=== PATIENT | female | born 1950 | race Caucasian/White ===

== ENCOUNTER 2017-04-27 07:29 | Emergency (ER) | payer MEDICARE, OTHER ==
[2017-04-27 07:41] VITALS: BP 171/80
--- NOTE | 2017-04-27 07:59 | EDM.PDOC ---
ED HPI GENERAL MEDICAL PROBLEM - General Chief Complaint: Lower Extremity Injury/Pain Stated Complaint: RIGHT FOOT INJURY Time Seen by Provider: 04/27/17 07:50 Source of Information: Reports: Patient, Family History Limitations: Reports: No Limitations - History of Present Illness INITIAL COMMENTS - FREE TEXT/NARRATIVE: The patient twisted her ankle in the bathroom a few days ago. She did not injure anything else such as her head or neck. She has edema and ecchymosis to her right foot and ankle. Onset: Sudden Duration: Day(s): Location: Reports: Lower Extremity, Right (ankle and foot) Quality: Reports: Sharp Severity: Moderate Improves with: Reports: Immobilization Worsens with: Reports: Movement Context: Reports: Activity (After getting off of the toilet) Associated Symptoms: Reports: No Other Symptoms Right Ankle Pain Score (Numeric/FACES): 5 - Related Data Allergies Allergy/AdvReac Type Severity Reaction Status Date / Time amitriptyline Allergy Cannot Verified 03/31/14 09:22 Remember azithromycin Allergy Rash Verified 03/31/14 09:22 cefixime [From Suprax] Allergy Cannot Verified 03/31/14 09:22 Remember clindamycin Allergy Cannot Verified 03/31/14 09:22 Remember codeine Allergy Cannot Verified 04/27/17 07:41 Remember diphenhydramine HCl Allergy Cannot Verified 04/27/17 07:41 [From Benadryl] Remember doxycycline Allergy Cannot Verified 04/27/17 07:41 Remember erythromycin base Allergy Cannot Verified 04/27/17 07:41 [Erythromycin Base] Remember gatifloxacin [From Tequin] Allergy Cannot Verified 04/27/17 07:41 Remember levofloxacin Allergy Hives Verified 04/27/17 07:41 lisinopril Allergy Hives Verified 04/27/17 07:41 lithium [[place]] Allergy Cannot Verified 04/27/17 07:41 Remember minocycline [Minocycline] Allergy Cannot Verified 04/27/17 07:41 Remember minocycline HCl Allergy Cannot Verified 04/27/17 07:41 [From Minocin] Remember Penicillins Allergy Cannot Verified 03/31/14 09:22 Remember ranitidine HCl [From Zantac] Allergy Cannot Verified 03/31/14 09:22 Remember Home Meds: Home Meds Albuterol/Ipratropium [DuoNeb 3.0-0.5 MG/3 ML] 3 ml NEB Q6HRRT #50 neb 07/01/16 [Rx] Hydrocodone/Chlorphen P-Stirex [Tussionex Pennkinetic Susp] 5 ml PO Q12H PRN # 60 ml 07/01/16 [Rx] predniSONE [Deltasone] 20 mg PO ASDIRECTED #18 tablet 07/01/16 [Rx] Past Medical History Cardiovascular History: Reports: Hypertension, SOB on Exertion Respiratory History: Reports: Bronchitis, Recurrent, COPD, Other (See Below) Gastrointestinal History: Reports: Chronic Constipation, GERD, Hemorrhoids, Hiatal Hernia, Irritable Bowel Syndrome Genitourinary History: Reports: Renal Calculus, Other (See Below) 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 Musculoskeletal History: Reports: Back Pain, Chronic, Osteoarthritis, Osteoporosis - Past Surgical History HEENT Surgical History: Reports: Cataract Surgery, Oral Surgery, Tonsillectomy GI Surgical History: Reports: Cholecystectomy, Colonoscopy, Hernia, Abdominal Musculoskeletal Surgical History: Reports: Other (See Below) Social & Family History - Family History Cardiac: Reports: CAD, Hypertension - Tobacco Use Smoking Status *Q: Former Smoker Years of Tobacco use: 40 Packs/Tins Daily: 1 Used Tobacco, but Quit: Yes Month Tobacco Last Used: unk - Caffeine Use Caffeine Use: Reports: Soda - Recreational Drug Use Recreational Drug Use: No - Living Situation & Occupation Living situation: Reports: Single Occupation: Retired Review of Systems - Review of Systems Review Of Systems: See Below Constitutional: Reports: No Symptoms Eyes: Reports: No Symptoms Ears: Reports: No Symptoms Nose: Reports: No Symptoms Mouth/Throat: Reports: No Symptoms Respiratory: Reports: No Symptoms Cardiovascular: Reports: No Symptoms GI/Abdominal: Reports: No Symptoms Genitourinary: Reports: No Symptoms Musculoskeletal: Reports: Other (Right ankle and foot pain) ED EXAM, GENERAL - Physical Exam Exam: See Below Exam Limited By: No Limitations General Appearance: Alert, No Apparent Distress Ears: Normal External Exam Nose: Normal Inspection Head: Atraumatic, Normocephalic Neck: Normal Inspection Respiratory/Chest: No Respiratory Distress, Lungs Clear, Normal Breath Sounds Cardiovascular: Regular Rate, Rhythm, No Edema, No Murmur GI/Abdominal: Soft, Non-Tender, No Organomegaly, No Mass Extremities: Other (Ecchymosis to the front of the foot. Edema to the ankle and foot with pain upon palpation. Good sensation and pulses distally.) Course - Vital Signs Last Recorded V/S: Last Vital Signs Temp 97.5 F 04/27/17 07:36 Pulse 90 04/27/17 07:36 Resp 16 04/27/17 07:36 BP 171/80 H 04/27/17 07:36 Pulse Ox 92 L 04/27/17 07:36 - Orders/Labs/Meds Orders: Active Orders 24 hr Category Date Time Status Ankle Min 3V Rt [CR] Stat Exams 04/27/17 07:54 Taken Foot Comp Min 3V Rt [CR] Stat Exams 04/27/17 07:54 Taken - Re-Assessments/Exams Free Text/Narrative Re-Assessment/Exam: 04/27/17 07:58 I ordered an x-ray of her foot and ankle. 04/27/17 08:49 She has a fracture of the proximal 5th metatarsal and a distal fibular fracture. She has a walking boot at home and I will have her follow up with Dr Pozo. Departure - Departure Time of Disposition: 08:50 Disposition: Home, Self-Care 01 Condition: Good Clinical Impression: Fibula fracture Qualifiers: Encounter type: initial encounter Fibula location: distal Fracture type: closed Fracture morphology: other fracture Laterality: right Qualified Code(s): S82.831A - Other fracture of upper and lower end of right fibula, initial encounter for closed fracture Metatarsal fracture Qualifiers: Encounter type: initial encounter Metatarsal bone: fifth Fracture type: closed Fracture alignment: nondisplaced Laterality: right Qualified Code(s): S92.354A - Nondisplaced fracture of fifth metatarsal bone, right foot, initial encounter for closed fracture - Discharge Information Referrals: Margoth Sykes NP [Primary Care Provider] - Figueroa Pozo MD [Physician] - 1 Week Forms: ED Department Discharge Additional Instructions: Wear the walking boot. Try to stay off your foot as much as you can for a couple of days. Ice your ankle and foot for 15 minutes every other hour while awake for 2 days. Take tylenol or motrin for pain. Follow up with Dr Pozo in 1 week. Please return if you are worse. - My Orders Last 24 Hours: My Active Orders 04/27/17 07:54 Ankle Min 3V Rt [CR] Stat Foot Comp Min 3V Rt [CR] Stat - Assessment/Plan Last 24 Hours: My Active Orders 04/27/17 07:54 Ankle Min 3V Rt [CR] Stat Foot Comp Min 3V Rt [CR] Stat
--- NOTE | 2017-04-27 09:12 | CR ---
Right foot: Five radiographs of the right foot were obtained. Comparison: No previous foot exam, recent ankle exam is available. Slightly displaced fracture is again noted within the base of the fifth metatarsal. Fracture involving the tip of the distal fibula is again noted. Small plantar spur is seen. No additional bony abnormality is seen. Soft tissue swelling is noted. Impression: 1. Slightly displaced fractures involving the base of the right fifth metatarsal as well as involving the tip of the fibula. 2. Soft tissue swelling. Diagnostic code #3
--- NOTE | 2017-04-27 09:12 | CR ---
Right ankle: Four views of the right ankle were obtained. Comparison: No previous right ankle exam. Fracture felt to be present within the distal tip of the fibula. Slight displacement is seen. Soft tissue swelling is identified. Ankle mortise is symmetric. Additional fracture is seen within the base of the fifth metatarsal which is slightly displaced. Small plantar spur is seen. Impression: 1. Fracture within the tip of the distal fibula with mild displacement. 2. Slightly displaced fracture within the base of the fifth metatarsal. 3. Soft tissue swelling. Diagnostic code #3
== END 2017-04-27 08:55 | disposition home or self-care (01) ==
LOC: JD.ED 07:29
DX: S92.354A Nondisplaced fracture of fifth metatarsal bone, right foot, initial encounter for closed fracture (principal); S82.831A Other fracture of upper and lower end of right fibula, initial encounter for closed fracture; S90.31XA Contusion of right foot, initial encounter; Z87.891 Personal history of nicotine dependence; I10 Essential (primary) hypertension; J44.9 Chronic obstructive pulmonary disease, unspecified; Z88.0 Allergy status to penicillin; Z88.1 Allergy status to other antibiotic agents; Z88.8 Allergy status to other drugs, medicaments and biological substances; Z88.5 Allergy status to narcotic agent; X50.1XXA Overexertion from prolonged static or awkward postures, initial encounter
CPT/HCPCS: 73610-26-RT; 73610-RT; 73630-26-RT; 73630-RT; 99283

== ENCOUNTER 2019-06-01 21:05 | Emergency (ER) | payer MEDICARE, OTHER ==
[2019-06-01 21:15] VITALS: BP 193/100; PULSE 65
[2019-06-01] MEDS ORDERED: Sodium Chloride 0.9% 10 ML Syringe FLUSH PRN (21:28)
[2019-06-01] MEDS ORDERED: Sodium Chloride 0.9% 1,000 ML IV ONE (21:28)
[2019-06-01] MEDS ORDERED: methylPREDNISolone Sodium Succinate 125 MG/2 ML SDV IVPUSH ONE (21:28)
[2019-06-01] MEDS ORDERED: predniSONE 20 MG Tab PO ONE ×2 (21:31→21:53)
--- NOTE | 2019-06-01 21:38 | EDM.PDOC ---
ED HPI GENERAL MEDICAL PROBLEM - General Chief Complaint: Allergic Reaction Stated Complaint: ALLERGIG REACTION Time Seen by Provider: 06/01/19 21:13 Source of Information: Reports: Patient, RN Notes Reviewed History Limitations: Reports: No Limitations - History of Present Illness INITIAL COMMENTS - FREE TEXT/NARRATIVE: Patient is a 68-year-old female who presents to the ED for the evaluation of a possible allergic reaction. Patient states that she got some new make-up on , and used 4 of the 8 products she obtained. She did notice a rash on her forehead, and around her cheeks, and states now that today she feels of her tongue is swollen. She denies any shortness of breath, but states that her chest feels tight. She denies any wheezing, or previous respiratory history. States she did not use a make-up yesterday as she noticed the rash. Patient states she has an allergy to Benadryl, but she cannot remember what exactly happened when she took Benadryl. She notes that the rash is not itchy. She did bring in the make-up products for evaluation, one appears to be in exfoliated, with alphahydroxy acid. Patient notes that she takes Claritin and Pepcid on a regular basis, she did take these today. - Related Data Allergies Allergy/AdvReac Type Severity Reaction Status Date / Time amitriptyline Allergy Cannot Verified 06/01/19 21:15 Remember azithromycin Allergy Rash Verified 06/01/19 21:15 cefixime [From Suprax] Allergy Cannot Verified 06/01/19 21:15 Remember clindamycin Allergy Cannot Verified 06/01/19 21:15 Remember codeine Allergy Cannot Verified 06/01/19 21:15 Remember diphenhydramine HCl Allergy Cannot Verified 06/01/19 21:15 [From Benadryl] Remember doxycycline Allergy Cannot Verified 06/01/19 21:15 Remember erythromycin base Allergy Cannot Verified 06/01/19 21:15 [Erythromycin Base] Remember gatifloxacin [From Tequin] Allergy Cannot Verified 06/01/19 21:15 Remember levofloxacin Allergy Hives Verified 06/01/19 21:15 lisinopril Allergy Hives Verified 06/01/19 21:15 lithium [[place]] Allergy Cannot Verified 06/01/19 21:15 Remember minocycline [Minocycline] Allergy Cannot Verified 06/01/19 21:15 Remember minocycline HCl Allergy Cannot Verified 12/14/19 21:15 [From Minocin] Remember Penicillins Allergy Cannot Verified 06/01/19 21:15 Remember ranitidine HCl [From Zantac] Allergy Cannot Verified 06/01/19 21:15 Remember Home Meds: Home Meds Albuterol [Ventolin HFA] 4 puff INH QID PRN 04/27/17 [History] Albuterol/Ipratropium [DuoNeb 3.0-0.5 MG/3 ML] 1 dose INH QID 04/27/17 [History] Amitriptyline [Elavil] 25 mg PO DAILY 04/27/17 [History] Aspirin 81 mg PO DAILY 04/27/17 [History] Calcium Carbonate [Calcium] 600 mg PO DAILY 04/27/17 [History] Cholecalciferol (Vitamin D3) [Cholecalciferol] 8 g PO DAILY 04/27/17 [History] Cyanocobalamin (Vitamin B-12) [Vitamin B-12] 500 mcg PO DAILY 04/27/17 [History] Dexlansoprazole [Dexilant] 60 mg PO BID 04/27/17 [History] Diclofen Sod/Kinesiology Tape [Diclo Gel 1%-Xrylix Sheet Kit] 1 dose TOP DAILY PRN 04/27/17 [History] Famotidine [Pepcid] 20 mg PO BID 04/27/17 [History] Fluticasone Propionate [Flonase] 2 spr KENNETH DAILY 04/27/17 [History] Gabapentin [Neurontin] 300 mg PO BID 04/27/17 [History] Ginko Biloba Extract 240 mg PO DAILY 04/27/17 [History] Loratadine [Claritin] 10 mg PO DAILY PRN 04/27/17 [History] Losartan [Cozaar] 50 mg PO DAILY 04/27/17 [History] Meloxicam 7.5 mg PO DAILY 04/27/17 [History] Metoprolol Tartrate [Lopressor] 100 mg PO BID 04/27/17 [History] Polyethylene Glycol 3350 [MiraLAX] 1 pack PO DAILY 04/27/17 [History] Sennosides [Senna] 8.6 mg PO DAILY 04/27/17 [History] Spironolactone [Aldactone] 6.25 mg PO BID 04/27/17 [History] Tapentadol HCl [Nucynta ER] 50 mg PO BID 04/27/17 [History] predniSONE 20 mg PO ASDIRECTED #13 tab 06/01/19 [Rx] Past Medical History Cardiovascular History: Reports: Hypertension, SOB on Exertion Respiratory History: Reports: Bronchitis, Recurrent, COPD, Other (See Below) Gastrointestinal History: Reports: Chronic Constipation, GERD, Hemorrhoids, Hiatal Hernia, Irritable Bowel Syndrome Genitourinary History: Reports: Renal Calculus, Other (See Below) 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 Musculoskeletal History: Reports: Back Pain, Chronic, Osteoarthritis, Osteoporosis - Past Surgical History HEENT Surgical History: Reports: Cataract Surgery, Oral Surgery, Tonsillectomy GI Surgical History: Reports: Cholecystectomy, Colonoscopy, Hernia, Abdominal Musculoskeletal Surgical History: Reports: Other (See Below) Social & Family History - Family History Cardiac: Reports: CAD, Hypertension - Tobacco Use Smoking Status *Q: Never Smoker Second Hand Smoke Exposure: No - Caffeine Use Caffeine Use: Reports: None - Recreational Drug Use Recreational Drug Use: No - Living Situation & Occupation Living situation: Reports: Single Occupation: Retired ED ROS ALLERGIC REACTION - Review of Systems Review Of Systems: See Below Constitutional: Denies: Fever, Chills HEENT: Reports: Other (feels her tongue is swollen) Respiratory: Reports: Shortness of Breath (sensation of not catching a deep breath). Denies: Wheezing GI/Abdominal: Denies: Abdominal Pain, Nausea, Vomiting Skin: Reports: Rash (light red rash to cheeks and forehead) ED EXAM GENERAL NO PERIP PULSE - Physical Exam Exam: See Below Exam Limited By: No Limitations General Appearance: Alert, WD/WN, No Apparent Distress Throat/Mouth: Normal Inspection, Normal Lips, Normal Teeth, Normal Gums, Normal Voice, No Airway Compromise, Other (Pt oral mucosa is dry) Head: Atraumatic, Normocephalic Neck: Normal Inspection Respiratory/Chest: No Respiratory Distress, Lungs Clear, Normal Breath Sounds, No Accessory Muscle Use, Chest Non-Tender Cardiovascular: Normal Peripheral Pulses, Regular Rate, Rhythm, No Murmur GI/Abdominal: Normal Bowel Sounds, Soft, Non-Tender, No Distention, No Mass Extremities: Normal Inspection, Normal Capillary Refill Neurological: Alert, Oriented, Normal Cognition, No Motor/Sensory Deficits Psychiatric: Normal Affect, Normal Mood Skin Exam: Warm, Dry, Intact, Normal Color, Erythema (to cheeks and forehead), Rash (light red rash that is slightly rough to touch, not tender or itchy.) Course - Vital Signs Last Recorded V/S: Last Vital Signs Temp 96.5 F 06/01/19 21:15 Pulse 65 06/01/19 21:15 Resp 20 06/01/19 21:15 BP 193/100 H 06/01/19 21:15 Pulse Ox 96 06/01/19 21:15 - Orders/Labs/Meds Orders: Active Orders 24 hr Category Date Time Status Peripheral IV Care [RC] . DIRECTED Care 06/01/19 21:28 Ordered Sodium Chloride 0.9% [Normal Saline] 1,000 ml Med 06/01/19 21:28 Ordered IV ONETIME Sodium Chloride 0.9% [Saline Flush] Med 06/01/19 21:28 Ordered 10 ml FLUSH ASDIRECTED PRN Peripheral IV Insertion Adult [OM.PC] Stat Oth 06/01/19 21:28 Ordered Medication Orders Sodium Chloride (Normal Saline) 1,000 mls @ 999 mls/hr IV ONETIME ONE Stop: 06/01/19 22:28 Sodium Chloride (Saline Flush) 10 ml FLUSH ASDIRECTED PRN PRN Reason: Keep Vein Open Meds: Medications Generic Name Dose Route Start Last Admin Trade Name Freq PRN Reason Stop Dose Admin Sodium Chloride 1,000 mls @ 999 mls/hr 06/01/19 21:28 Normal Saline IV 06/01/19 22:28 ONETIME ONE Sodium Chloride 10 ml 06/01/19 21:28 Saline Flush FLUSH ASDIRECTED PRN Keep Vein Open Discontinued Medications Generic Name Dose Route Start Last Admin Trade Name Freq PRN Reason Stop Dose Admin Methylprednisolone Sodium Succinate 125 mg 06/01/19 21:28 Solu-Medrol IVPUSH 06/01/19 21:29 ONETIME ONE Prednisone 40 mg 06/01/19 21:31 Prednisone PO 06/01/19 21:32 ONETIME ONE - Re-Assessments/Exams Free Text/Narrative Re-Assessment/Exam: 06/01/19 21:38 Patient presents to the ED for the evaluation of a possible allergic reaction. Due to her allergy to Benadryl that she states, she will be given some IV fluids and 125 mg of Solu-Medrol, she had already taken Pepcid and Claritin for today. Patient be sent home on outpatient burst of prednisone. 06/01/19 21:52 Patient is refusing IV at this time, I will cancel the Solu-Medrol and fluids, and will give her 40 mg p.o. prednisone now, and send 40 home with her for tomorrow, she will have to [facility] prescription on Monday. Departure - Departure Time of Disposition: 22:03 Disposition: Home, Self-Care 01 Condition: Fair Clinical Impression: Allergic reaction Qualifiers: Encounter type: initial encounter Qualified Code(s): T78.40XA - Allergy, unspecified, initial encounter - Discharge Information *PRESCRIPTION DRUG MONITORING PROGRAM REVIEWED*: No *COPY OF PRESCRIPTION DRUG MONITORING REPORT IN PATIENT ABE: No Prescriptions: predniSONE 20 mg PO ASDIRECTED #13 tab Instructions: Allergies, Adult, [id number] Referrals: Margoth Sykes DIETARY MANAGER [Primary Care Provider] - Additional Instructions: You were evaluated in the ER today regarding your possible allergic reaction. You were given 40 mg PO prednisone for initial management, as she refused the IV medications and fluids. You have been given a prescription for an outpatient burst of prednisone, please take as directed for further relief of your allergic reaction. Your first 2 doses will be tomorrow, take 1 in the morning and 1 at night, you will need to go to [facility] in [place] on Monday to obtain the rest of the prescription and take as directed. Please try to refrain from using these make-up products any longer. You may try to use a light moisturizing cream to the face, or something like hydrocortisone for further relief of the rash. Please return to the ER at any time if your symptoms change or worsen. Sepsis Event Note - Evaluation Sepsis Screening Result: No Definite Risk - Focused Exam Vital Signs: Vital Signs Temp Pulse Resp BP Pulse Ox 06/01/19 21:15 96.5 F 65 20 193/100 H 96 Date Exam was Performed: 06/01/19 Time Exam was Performed: 21:33 - My Orders Last 24 Hours: My Active Orders 06/01/19 21:28 Peripheral IV Care [RC] . DIRECTED Sodium Chloride 0.9% [Normal Saline] 1,000 ml IV ONETIME Sodium Chloride 0.9% [Saline Flush] 10 ml FLUSH ASDIRECTED PRN Peripheral IV Insertion Adult [OM.PC] Stat - Assessment/Plan Last 24 Hours: My Active Orders 06/01/19 21:28 Peripheral IV Care [RC] . DIRECTED Sodium Chloride 0.9% [Normal Saline] 1,000 ml IV ONETIME Sodium Chloride 0.9% [Saline Flush] 10 ml FLUSH ASDIRECTED PRN Peripheral IV Insertion Adult [OM.PC] Stat
== END 2019-06-01 22:35 | disposition home or self-care (01) ==
LOC: JD.ED 21:05
DX: T78.40XA Allergy, unspecified, initial encounter (principal); J44.9 Chronic obstructive pulmonary disease, unspecified; I10 Essential (primary) hypertension; K21.9 Gastro-esophageal reflux disease without esophagitis; Z79.51 Long term (current) use of inhaled steroids; Z79.52 Long term (current) use of systemic steroids; Z79.82 Long term (current) use of aspirin; Z79.899 Other long term (current) drug therapy; Z88.0 Allergy status to penicillin; Z88.1 Allergy status to other antibiotic agents; Z88.4 Allergy status to anesthetic agent; Z88.5 Allergy status to narcotic agent; Z88.8 Allergy status to other drugs, medicaments and biological substances
CPT/HCPCS: 99283; A9270

== ENCOUNTER 2019-06-05 12:08 | Emergency (ER) | payer MEDICARE, OTHER ==
--- NOTE | 2019-06-05 12:34 | EDM.PDOC ---
ED HPI GENERAL MEDICAL PROBLEM - General Chief Complaint: Cardiovascular Problem Stated Complaint: HIGH BLOOD PRESSURE Time Seen by Provider: 06/05/19 12:24 Source of Information: Reports: Patient History Limitations: Reports: No Limitations - History of Present Illness INITIAL COMMENTS - FREE TEXT/NARRATIVE: Patient is an unfortunate 68-year-old female who presents emergency Department today with complaint of burning to her face and pain in the right chest. These symptoms started 5 days ago and have progressively worse since. Patient was seen here on 06/01/2019 and was diagnosed with a potential allergic reaction patient was placed on a steroid burst and she reports she has had no improvement in symptoms since. Patient reports that since she's continued to have problems with the burning to her face dry tongue and pain to her right chest she went and saw her PCP today who sent her to the emergency department for evaluation. Patient reports that she feels like the symptoms have progressively worsened despite treatment. Nausea no vomiting no short of breath no cough - Related Data Allergies Allergy/AdvReac Type Severity Reaction Status Date / Time amitriptyline Allergy Cannot Verified 06/01/19 21:15 Remember azithromycin Allergy Rash Verified 06/01/19 21:15 cefixime [From Suprax] Allergy Cannot Verified 06/01/19 21:15 Remember clindamycin Allergy Cannot Verified 06/01/19 21:15 Remember codeine Allergy Cannot Verified 06/01/19 21:15 Remember diphenhydramine HCl Allergy Cannot Verified 06/01/19 21:15 [From Benadryl] Remember doxycycline Allergy Cannot Verified 06/01/19 21:15 Remember erythromycin base Allergy Cannot Verified 06/01/19 21:15 [Erythromycin Base] Remember gatifloxacin [From Tequin] Allergy Cannot Verified 06/01/19 21:15 Remember levofloxacin Allergy Hives Verified 06/01/19 21:15 lisinopril Allergy Hives Verified 06/01/19 21:15 lithium [Callaway] Allergy Cannot Verified 06/01/19 21:15 Remember minocycline [Minocycline] Allergy Cannot Verified 06/01/19 21:15 Remember minocycline HCl Allergy Cannot Verified 06/01/19 21:15 [From Minocin] Remember Penicillins Allergy Cannot Verified 06/01/19 21:15 Remember ranitidine HCl [From Zantac] Allergy Cannot Verified 06/01/19 21:15 Remember Home Meds: Home Meds Albuterol [Ventolin HFA] 4 puff INH QID PRN 04/27/17 [History] Aspirin 81 mg PO DAILY 04/27/17 [History] Cyanocobalamin (Vitamin B-12) [Vitamin B-12] 1,000 mcg INJECT ASDIRECTED [History] Fluticasone Propionate [Flonase] 2 spr KENNETH DAILY 04/27/17 [History] Gabapentin [Neurontin] 600 mg PO TID 04/27/17 [History] Ginko Biloba Extract 240 mg PO DAILY 04/27/17 [History] Loratadine [Claritin] 10 mg PO DAILY PRN 04/27/17 [History] Losartan [Cozaar] 50 mg PO DAILY 04/27/17 [History] Meloxicam 7.5 mg PO DAILY 04/27/17 [History] Metoprolol Tartrate [Lopressor] 100 mg PO BID 04/27/17 [History] Polyethylene Glycol 3350 [MiraLAX] 1 pack PO DAILY 04/27/17 [History] Sennosides [Senna] 8.6 mg PO DAILY 04/27/17 [History] Spironolactone [Aldactone] 6.25 mg PO DAILY 04/27/17 [History] predniSONE 20 mg PO ASDIRECTED #13 tab 06/01/19 [Rx] Amitriptyline [Elavil] 25 mg PO DAILY 06/05/19 [History] Cyclobenzaprine [Flexeril] 5 mg PO TID PRN 06/05/19 [History] Denosumab [Prolia] 60 mg INJECT Q6M 06/05/19 [History] Fluticasone/Umeclidin/Vilanter [Trelegy Ellipta 100-62.5-25 MCG] 1 puff INH DAILY 06/05/19 [History] Hydrocodone/Acetaminophen [Hydrocodon-Acetaminophn 10-325] 1 tab PO Q4H PRN [History] Magnesium Chloride [Mag-64] 64 mg PO BID 06/05/19 [History] Metoclopramide [Reglan] 5 mg PO DAILY 06/05/19 [History] Ondansetron [Zofran ODT] 8 mg PO BID PRN 06/05/19 [History] Polethylene Glycol 1 drop TOP BID PRN 06/05/19 [History] atorvaSTATin Calcium [Lipitor] 40 mg PO BEDTIME 06/05/19 [History] cycloSPORINE [Restasis] 1 drop TOP BID 06/05/19 [History] Past Medical History Cardiovascular History: Reports: Hypertension, SOB on Exertion Respiratory History: Reports: Bronchitis, Recurrent, COPD, Other (See Below) Gastrointestinal History: Reports: Chronic Constipation, GERD, Hemorrhoids, Hiatal Hernia, Irritable Bowel Syndrome Genitourinary History: Reports: Renal Calculus, Other (See Below) 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 Musculoskeletal History: Reports: Back Pain, Chronic, Osteoarthritis, Osteoporosis - Past Surgical History HEENT Surgical History: Reports: Cataract Surgery, Oral Surgery, Tonsillectomy GI Surgical History: Reports: Cholecystectomy, Colonoscopy, Hernia, Abdominal Musculoskeletal Surgical History: Reports: Other (See Below) Social & Family History - Family History Cardiac: Reports: CAD, Hypertension - Tobacco Use Smoking Status *Q: Former Smoker Used Tobacco, but Quit: Yes Month/Year Tobacco Last Used: 6 - Caffeine Use Caffeine Use: Reports: None - Living Situation & Occupation Living situation: Reports: Single Occupation: Retired ED ROS GENERAL - Review of Systems Review Of Systems: See Below Constitutional: Denies: Fever, Chills HEENT: Reports: Other (Dry Mouth). Denies: Contact Lenses, Dental Pain Respiratory: Denies: Shortness of Breath, Cough Cardiovascular: Reports: Chest Pain Skin: Reports: Other (Burning sensation to face) ED EXAM, GENERAL - Physical Exam Exam: See Below Exam Limited By: No Limitations General Appearance: Alert, WD/WN, Anxious, Mild Distress Ears: Normal External Exam, Normal Canal, Hearing Grossly Normal, Normal TMs Nose: Normal Inspection, Normal Mucosa, No Blood Throat/Mouth: Other (Dry mouth) Neck: Normal Inspection, Supple, Non-Tender, Full Range of Motion Respiratory/Chest: No Respiratory Distress, Lungs Clear, Normal Breath Sounds, No Accessory Muscle Use, Other (Mild tenderness to right sternal border third intercostal space) Cardiovascular: Normal Peripheral Pulses, Regular Rate, Rhythm, No Edema, No Gallop, No JVD, No Murmur, No Rub GI/Abdominal: Normal Bowel Sounds, Soft, Non-Tender, No Organomegaly, No Distention, No Abnormal Bruit, No Mass Back Exam: Normal Inspection, Full Range of Motion, NT Extremities: Normal Inspection, Normal Range of Motion Neurological: Alert, Oriented Skin Exam: Warm, Dry, No Rash EKG INTERPRETATION EKG Date: 06/05/19 Time: 13:32 Rhythm: NSR [place]: Normal P-Wave: Present QRS: Normal ST-T: Other (NSST changes) QT: Normal Course - Vital Signs Last Recorded V/S: Last Vital Signs Temp 98.3 F 06/05/19 12:21 Pulse 67 06/05/19 12:21 Resp 13 06/05/19 12:21 BP 156/80 H 06/05/19 12:21 Pulse Ox 98 06/05/19 12:21 - Orders/Labs/Meds Orders: Active Orders 24 hr Category Date Time Status EKG Documentation Completion [RC] ASDIRECTED Care 06/05/19 12:38 Active CULTURE URINE [RM] Stat Lab 06/05/19 13:05 Received Sodium Chloride 0.9% [Saline Flush] Med 06/05/19 12:37 Active 10 ml FLUSH ASDIRECTED PRN Saline Lock Insert [OM.PC] Stat Oth 06/05/19 12:37 Ordered EKG 12 Lead [EK] Stat Ther 06/05/19 12:37 Ordered Medication Orders Sodium Chloride (Saline Flush) 10 ml FLUSH ASDIRECTED PRN PRN Reason: Keep Vein Open Last Admin: 06/05/19 12:45 Dose: 10 ml Labs: Laboratory Tests 06/05/19 06/05/19 06/05/19 Range/Units 12:45 12:45 13:05 WBC 8.96 (3.98-10.04) K/mm3 RBC 4.03 (3.98-5.22) M/mm3 Hgb 12.1 (11.2-15.7) gm/dl Hct 35.2 (34.1-44.9) % MCV 87.3 (79.4-94.8) fl MCH 30.0 (25.6-32.2) pg MCHC 34.4 (32.2-35.5) g/dl RDW Std Deviation 38.3 (36.4-46.3) fL Plt Count 198 (182-369) K/mm3 MPV 10.1 (9.4-12.3) fl Neut % (Auto) 83.2 H (34.0-71.1) % Lymph % (Auto) 11.0 L (19.3-51.7) % [place]phill % (Auto) 5.2 (4.7-12.5) % Eos % (Auto) 0 L (0.7-5.8) Baso % (Auto) 0.0 L (0.1-1.2) % Neut # (Auto) 7.45 H (1.56-6.13) K/mm3 Lymph # (Auto) 0.99 L (1.18-3.74) K/mm3 [place]phill # (Auto) 0.47 H (0.24-0.36) K/mm3 Eos # (Auto) 0.00 L (0.04-0.36) K/mm3 Baso # (Auto) 0.00 L (0.01-0.08) K/mm3 Sodium 133 L (136-145) mEq/L Potassium 4.3 (3.5-5.1) mEq/L Chloride 97 L (98-107) mEq/L Carbon Dioxide 28 (21-32) mEq/L Anion Gap 12.3 (5-15) BUN 20 H (7-18) mg/dL Creatinine 1.4 H (0.55-1.02) mg/dL Est Cr Clr Drug Dosing 26.86 mL/min Estimated GFR (MDRD) 37 (>60) mL/min BUN/Creatinine Ratio 14.3 (14-18) Glucose 152 H (80-115) mg/dL Calcium 9.2 (8.5-10.1) mg/dL Total Bilirubin 0.3 (0.2-1.0) mg/dL AST 7 L (15-37) U/L ALT 21 (14-59) U/L Alkaline Phosphatase 89 (46-116) U/L Troponin I < 0.017 (0.00-0.056) ng/mL Total Protein 7.3 (6.4-8.2) g/dl Albumin 4.1 (3.4-5.0) g/dl Globulin 3.2 gm/dL Albumin/Globulin Ratio 1.3 (1-2) Urine Color Yellow (Yellow) Urine Appearance Clear (Clear) Urine pH 7.5 (5.0-8.0) Ur Specific Tarrs 1.020 (1.005-1.030) Urine Protein Negative (Negative) Urine Glucose (UA) Negative (Negative) Urine Ketones Negative (Negative) Urine Occult Blood Trace-intact H (Negative) Urine Nitrite Negative (Negative) Urine Bilirubin Negative (Negative) Urine Urobilinogen 0.2 (0.2-1.0) Ur Leukocyte Esterase 1+ H (Negative) Urine RBC 0-5 (0-5) /hpf Urine WBC 10-20 H (0-5) /hpf Ur Squamous Epith Cells 0-5 (0-5) /hpf Urine Bacteria Many H (FEW) /hpf Urine Mucus Rare (FEW) /hpf Meds: Medications Generic Name Dose Route Start Last Admin Trade Name Freq PRN Reason Stop Dose Admin Sodium Chloride 10 ml 06/05/19 12:37 06/05/19 12:45 Saline Flush FLUSH 10 ml ASDIRECTED PRN Administration Keep Vein Open - Re-Assessments/Exams Free Text/Narrative Re-Assessment/Exam: 06/05/19 12:36 She reports or unable to use her left arm for IVs or blood draws because she has titanium in her left arm, and instructed patient that this is not a contraindication for IVs or blood draws the patient responded "how are you supposed to get blood out if it's all made of metal?" Departure - Departure Time of Disposition: 14:09 Disposition: Home, Self-Care 01 Clinical Impression: Paresthesia - Discharge Information Referrals: Margoth Sykes NP [Primary Care Provider] - Forms: ED Department Discharge Additional Instructions: Home, rest, return as needed for worsening condition, continue current steroid therapy Sepsis Event Note - Evaluation Sepsis Screening Result: No Definite Risk - Focused Exam Vital Signs: Vital Signs Temp Pulse Resp BP Pulse Ox 06/05/19 12:21 98.3 F 67 13 156/80 H 98 Date Exam was Performed: 06/05/19 Time Exam was Performed: 14:09 - My Orders Last 24 Hours: My Active Orders 06/05/19 12:37 Sodium Chloride 0.9% [Saline Flush] 10 ml FLUSH ASDIRECTED PRN Saline Lock Insert [OM.PC] Stat EKG 12 Lead [EK] Stat 06/05/19 12:38 EKG Documentation Completion [RC] ASDIRECTED 06/05/19 13:05 CULTURE URINE [RM] Stat - Assessment/Plan Last 24 Hours: My Active Orders 06/05/19 12:37 Sodium Chloride 0.9% [Saline Flush] 10 ml FLUSH ASDIRECTED PRN Saline Lock Insert [OM.PC] Stat EKG 12 Lead [EK] Stat 06/05/19 12:38 EKG Documentation Completion [RC] ASDIRECTED 06/05/19 13:05 CULTURE URINE [RM] Stat
[2019-06-05] MEDS ORDERED: Sodium Chloride 0.9% 10 ML Syringe FLUSH PRN (12:37)
--- NOTE | 2019-06-05 14:02 | CR ---
Chest: Two views of the chest were obtained. Comparison: Prior chest x-ray of 07/01/16. Heart size is normal. Tortuous thoracic aorta is seen. Slight atelectasis is noted within the right lung base. Lungs otherwise are clear. Previous lumbar spine surgery is noted with scoliosis. Surgical clips are seen within the upper right abdomen. Impression: 1. Slight right basilar atelectasis. 2. Nothing acute seen on two-view chest x-ray. Diagnostic code #2 This report was dictated in [place] Standard Time
[2019-06-05 14:35] VITALS: BP 158/62; PULSE 60
== END 2019-06-05 14:30 | disposition home or self-care (01) ==
LOC: JD.ED 12:08
DX: R20.2 Paresthesia of skin (principal); I10 Essential (primary) hypertension; Z79.899 Other long term (current) drug therapy; Z79.82 Long term (current) use of aspirin; Z87.891 Personal history of nicotine dependence; Z88.1 Allergy status to other antibiotic agents; Z88.0 Allergy status to penicillin; Z88.8 Allergy status to other drugs, medicaments and biological substances; Z88.5 Allergy status to narcotic agent
CPT/HCPCS: 36415; 71046; 71046-26; 80053; 81001; 84484; 85025; 87086; 93005; 93010; 99283; 99285-25

== ENCOUNTER 2020-01-04 00:20 | Emergency (ER) | payer MEDICARE, OTHER ==
[2020-01-04 02:40] VITALS: BP 133/62; PULSE 94
--- NOTE | 2020-01-04 04:04 | EDM.PDOC ---
ED HPI GENERAL MEDICAL PROBLEM - General Chief Complaint: General Stated Complaint: SOB FEVER CONFUSION Time Seen by Provider: 01/04/20 03:06 Source of Information: Reports: Patient, Family () History Limitations: Reports: Altered Mental Status (Confused) - History of Present Illness INITIAL COMMENTS - FREE TEXT/NARRATIVE: Mrs. Liao is a very pleasant 69-year-old woman with numerous chronic medical issues who is now brought to the ED by her , who tells me that she has had a tremor, primarily in her left hand, for several months. He is concerned that she might have Parkinson disease. She is also had confusion and drowsiness that has been present for about a week or so. The patient is able to tell us her name, but insists that she is not in [place], and cannot tell us the year, month, or even the season. The patient's recorded a temperature of 100 degrees at home, prior to bringing the patient to the ED. The patient's tells me that the patient was admitted to [facility] about 2 weeks ago, for 2 nights. Her home oxygen was continued, and he states that no new medications were prescribed. The patient denies having any pain, dyspnea, or nausea. Here in the ED, the patient's initial BP was found to be elevated at 150/80 with a tachycardia of 104 bpm, however, without treatment, her BP soon decreased to 131/60, and the heart rate of 94 bpm. She is afebrile, with an oxygen saturation is 97% on 1.5 L of oxygen per nasal cannula, which is her home dose. Other than the tremor, confusion, and mildly elevated temperature, the patient's denies that the patient has had a recent sore throat, ear pain, nasal or sinus congestion, cough, dyspnea, chest pain, palpitations, nausea, vomiting, constipation, diarrhea, abdominal pain, urinary symptoms, recent weight gain or weight loss, recent bloody bowel movements or black bowel movements, recent joint aches, headaches, or rashes. The patient's PCP is Margoth Sykes NP. - Related Data Allergies Allergy/AdvReac Type Severity Reaction Status Date / Time amitriptyline Allergy Cannot Verified 01/07/20 02:10 Remember azithromycin Allergy Rash Verified 01/07/20 02:10 cefixime [From Suprax] Allergy Cannot Verified 01/07/20 02:10 Remember clindamycin Allergy Cannot Verified 01/07/20 02:10 Remember codeine Allergy Cannot Verified 01/07/20 02:10 Remember diphenhydramine HCl Allergy Cannot Verified 01/07/20 02:10 [From Benadryl] Remember doxycycline Allergy Cannot Verified 01/07/20 02:10 Remember erythromycin base Allergy Cannot Verified 01/07/20 02:10 [Erythromycin Base] Remember gatifloxacin [From Tequin] Allergy Cannot Verified 01/07/20 02:10 Remember levofloxacin Allergy Hives Verified 01/07/20 02:10 lisinopril Allergy Hives Verified 01/07/20 02:10 lithium [[place]] Allergy Cannot Verified 01/07/20 02:10 Remember minocycline [Minocycline] Allergy Cannot Verified 01/07/20 02:10 Remember minocycline HCl Allergy Cannot Verified 01/07/20 02:10 [From Minocin] Remember Penicillins Allergy Cannot Verified 01/07/20 02:10 Remember ranitidine HCl [From Zantac] Allergy Cannot Verified 01/07/20 02:10 Remember Home Meds: Home Meds Albuterol [Ventolin HFA] 4 puff INH QID PRN 04/27/17 [History] Aspirin 81 mg PO DAILY 04/27/17 [History] Cyanocobalamin (Vitamin B-12) [Vitamin B-12] 1,000 mcg INJECT ASDIRECTED 04/27/17 [History] Fluticasone Propionate [Flonase] 2 spr KENNETH DAILY 04/27/17 [History] Gabapentin [Neurontin] 600 mg PO TID 04/27/17 [History] Losartan [Cozaar] 50 mg PO DAILY 04/27/17 [History] Metoprolol Tartrate [Lopressor] 100 mg PO BID 04/27/17 [History] Amitriptyline [Elavil] 25 mg PO DAILY 06/05/19 [History] Cyclobenzaprine [Flexeril] 5 mg PO TID PRN 06/05/19 [History] Denosumab [Prolia] 60 mg INJECT Q6M 06/05/19 [History] Fluticasone/Umeclidin/Vilanter [Trelegy Ellipta 100-62.5-25 MCG] 1 puff INH DAILY 06/05/19 [History] Hydrocodone/Acetaminophen [Hydrocodon-Acetaminophn 10-325] 1 tab PO Q4H PRN 06/05/19 [History] Magnesium Chloride [Mag-64] 64 mg PO BID 06/05/19 [History] Metoclopramide [Reglan] 5 mg PO DAILY 06/05/19 [History] atorvaSTATin Calcium [Lipitor] 40 mg PO BEDTIME 06/05/19 [History] Biotin 1 tab PO ASDIRECTED 01/07/20 [History] Cyanocobalamin (Vitamin B-12) [B-12] 1,000 mcg PO ASDIRECTED 01/07/20 [History] Donepezil HCl 10 mg PO BEDTIME 01/07/20 [History] Famotidine 20 mg PO ASDIRECTED PRN 01/07/20 [History] Furosemide [Lasix] 20 mg PO DAILY 01/07/20 [History] Sennosides [Senna] 8.6 mg PO ASDIRECTED PRN 01/07/20 [History] carvediloL [Carvedilol] 25 mg PO DAILY 01/07/20 [History] Past Medical History Cardiovascular History: Reports: Hypertension Respiratory History: Reports: COPD (continuous O2 1.5 L/min per NC) Gastrointestinal History: Reports: GERD, Hemorrhoids, Hiatal Hernia Genitourinary History: Reports: Renal Calculus Musculoskeletal History: Reports: Osteoarthritis, Osteoporosis - Past Surgical History HEENT Surgical History: Reports: Cataract Surgery (bilateral), Oral Surgery (dental extractions), Tonsillectomy Other Respiratory Surgeries/Procedures: wears 1.5 LPM O2 GI Surgical History: Reports: Cholecystectomy, Colonoscopy, Hernia, Abdominal Social & Family History - Family History Cardiac: Reports: CAD, Hypertension - Tobacco Use Smoking Status *Q: Former Smoker Month/Year Tobacco Last Used: Quit 2019 - Caffeine Use Caffeine Use: Reports: None - Living Situation & Occupation Living situation: Reports: , with Spouse Occupation: Retired ED ROS GENERAL - Review of Systems Review Of Systems: Comprehensive ROS is negative, except as noted in HPI. Musculoskeletal: Reports: Back Pain (chronic) ED EXAM, GENERAL - Physical Exam Exam: See Below Exam Limited By: No Limitations General Appearance: Alert (kept eyes closed, but responded immediately when asked questions), WD/WN, No Apparent Distress Eye Exam: Bilateral Eye: EOMI, Normal Inspection Ears: Normal External Exam, Hearing Grossly Normal Nose: Normal Inspection Throat/Mouth: Normal Inspection, Normal Lips, Normal Voice, No Airway Compromise Head: Atraumatic, Normocephalic Neck: Normal Inspection, Full Range of Motion Respiratory/Chest: No Respiratory Distress, Lungs Clear, Normal Breath Sounds, No Accessory Muscle Use Cardiovascular: Normal Peripheral Pulses, Regular Rate, Rhythm, No Gallop, No JVD, No Murmur, No Rub Peripheral Pulses: 3+: Radial (L), Radial (R) GI/Abdominal: Normal Bowel Sounds, Soft, Non-Tender, No Organomegaly, No Distention, No Abnormal Bruit, No Mass (Female) Exam: Deferred Rectal (Female) Exam: Deferred Back Exam: Normal Inspection, Full Range of Motion, NT Extremities: Normal Inspection, Normal Range of Motion, Normal Capillary Refill Neurological: Alert, CN II-XII Intact, No Motor/Sensory Deficits, Disoriented (to place and time), Memory Loss Recent Events (could not give information regarding recent admission to [facility]) Psychiatric: Normal Affect Skin Exam: Warm, Dry, Intact, Normal Color, No Rash EKG INTERPRETATION EKG Date: 01/04/20 Time: 02:20 Rhythm: NSR Rate (Beats/Min): 96 [place]: Normal P-Wave: Present QRS: Normal ST-T: Normal QT: Normal Comparison: No Change (06/05/2019) Course - Vital Signs Last Recorded V/S: Last Vital Signs Temp 37.0 C 01/04/20 00:43 Pulse 94 01/04/20 02:40 Resp 16 01/04/20 02:40 BP 133/62 01/04/20 02:40 Pulse Ox 96 01/04/20 02:40 - Orders/Labs/Meds Labs: Laboratory Tests 01/04/20 01/04/20 01/04/20 Range/Units 02:05 02:10 02:10 WBC 9.33 (3.98-10.04) K/mm3 RBC 2.99 L (3.98-5.22) M/mm3 Hgb 9.7 L D (11.2-15.7) gm/dl Hct 29.4 L (34.1-44.9) % MCV 98.3 H D (79.4-94.8) fl MCH 32.4 H (25.6-32.2) pg MCHC 33.0 (32.2-35.5) g/dl RDW Std Deviation 48.5 H (36.4-46.3) fL Plt Count 147 L (182-369) K/mm3 MPV 9.2 L (9.4-12.3) fl Neut % (Auto) 80.8 H (34.0-71.1) % Lymph % (Auto) 10.6 L (19.3-51.7) % Hayes % (Auto) 8.0 (4.7-12.5) % Eos % (Auto) 0.3 L (0.7-5.8) Baso % (Auto) 0.0 L (0.1-1.2) % Neut # (Auto) 7.53 H (1.56-6.13) K/mm3 Lymph # (Auto) 0.99 L (1.18-3.74) K/mm3 Hayes # (Auto) 0.75 H (0.24-0.36) K/mm3 Eos # (Auto) 0.03 L (0.04-0.36) K/mm3 Baso # (Auto) 0.00 L (0.01-0.08) K/mm3 Sodium 135 L (136-145) mEq/L Potassium 3.8 (3.5-5.1) mEq/L Chloride 98 (98-107) mEq/L Carbon Dioxide 34 H (21-32) mEq/L Anion Gap 6.8 (5-15) BUN 19 H (7-18) mg/dL Creatinine 1.3 H (0.55-1.02) mg/dL Est Cr Clr Drug Dosing 32.83 mL/min Estimated GFR (MDRD) 40 (>60) mL/min BUN/Creatinine Ratio 14.6 (14-18) Glucose 144 H (83-115) mg/dL Calcium 8.6 (8.5-10.1) mg/dL Total Bilirubin 0.5 (0.2-1.0) mg/dL AST 13 L (15-37) U/L ALT 25 (14-59) U/L Alkaline Phosphatase 77 (46-116) U/L Total Protein 5.6 L (6.4-8.2) g/dl Albumin 2.7 L (3.4-5.0) g/dl Globulin 2.9 gm/dL Albumin/Globulin Ratio 0.9 L (1-2) Urine Color (Yellow) Urine Appearance (Clear) Urine pH (5.0-8.0) Ur Specific [place] (1.005-1.030) Urine Protein (Negative) Urine Glucose (UA) (Negative) Urine Ketones (Negative) Urine Occult Blood (Negative) Urine Nitrite (Negative) Urine Bilirubin (Negative) Urine Urobilinogen (0.2-1.0) Ur Leukocyte Esterase (Negative) Urine RBC (0-5) /hpf Urine WBC (0-5) /hpf Ur Squamous Epith Cells (0-5) /hpf Urine Bacteria (FEW) /hpf Urine Mucus (FEW) /hpf SARS Virus RNA (PCR) Negative (NEGATIVE) 01/04/20 Range/Units 02:15 WBC (3.98-10.04) K/mm3 RBC (3.98-5.22) M/mm3 Hgb (11.2-15.7) gm/dl Hct (34.1-44.9) % MCV (79.4-94.8) fl MCH (25.6-32.2) pg MCHC (32.2-35.5) g/dl RDW Std Deviation (36.4-46.3) fL Plt Count (182-369) K/mm3 MPV (9.4-12.3) fl Neut % (Auto) (34.0-71.1) % Lymph % (Auto) (19.3-51.7) % [place] % (Auto) (4.7-12.5) % Eos % (Auto) (0.7-5.8) Baso % (Auto) (0.1-1.2) % Neut # (Auto) (1.56-6.13) K/mm3 Lymph # (Auto) (1.18-3.74) K/mm3 [place] # (Auto) (0.24-0.36) K/mm3 Eos # (Auto) (0.04-0.36) K/mm3 Baso # (Auto) (0.01-0.08) K/mm3 Sodium (136-145) mEq/L Potassium (3.5-5.1) mEq/L Chloride (98-107) mEq/L Carbon Dioxide (21-32) mEq/L Anion Gap (5-15) BUN (7-18) mg/dL Creatinine (0.55-1.02) mg/dL Est Cr Clr Drug Dosing mL/min Estimated GFR (MDRD) (>60) mL/min BUN/Creatinine Ratio (14-18) Glucose (83-115) mg/dL Calcium (8.5-10.1) mg/dL Total Bilirubin (0.2-1.0) mg/dL AST (15-37) U/L ALT (14-59) U/L Alkaline Phosphatase (46-116) U/L Total Protein (6.4-8.2) g/dl Albumin (3.4-5.0) g/dl Globulin gm/dL Albumin/Globulin Ratio (1-2) Urine Color Yellow (Yellow) Urine Appearance Clear (Clear) Urine pH 7.0 (5.0-8.0) Ur Specific [place] 1.020 (1.005-1.030) Urine Protein Trace H (Negative) Urine Glucose (UA) Negative (Negative) Urine Ketones Negative (Negative) Urine Occult Blood Trace-intact H (Negative) Urine Nitrite Negative (Negative) Urine Bilirubin Negative (Negative) Urine Urobilinogen 0.2 (0.2-1.0) Ur Leukocyte Esterase Negative (Negative) Urine RBC 0-5 (0-5) /hpf Urine WBC 0-5 (0-5) /hpf Ur Squamous Epith Cells 0-5 (0-5) /hpf Urine Bacteria Not seen (FEW) /hpf Urine Mucus Not seen (FEW) /hpf SARS Virus RNA (PCR) (NEGATIVE) - Re-Assessments/Exams Free Text/Narrative Re-Assessment/Exam: 01/04/20 03:59 As above, the patient has had a tremor, primarily in her left hand, for several months, and the patient's recorded a temperature of 100 degrees at home, although she is afebrile here in the ED. The most concerning issue is her confusion, which he states developed fairly recently, possibly within the last week or so. She is oriented to person, but not to place or time. No focal neurologic deficits. A CBC, CMP, urinalysis, and test for the SARS-CoV-2 virus, ordered at triage, have all returned unremarkable. I have ordered a CT of the head without contrast, although I explained to the patient's that CT scans of the head are useful in determining why patients have focal neurologic deficits, however, tend not to be useful in determining why patients have confusion, therefore I am not expecting to find a significant abnormality. The patient's expressed understanding. 01/04/20 05:48 CT of the head without contrast is read by Yvonne as: 1. No acute intracranial abnormality is appreciated. 2. Nonacute findings as outlined above. 01/04/20 05:53 CT results discussed with the patient, however, her is not currently present. I will prepare to discharge her home. Departure - Departure Time of Disposition: 05:53 Disposition: Home, Self-Care 01 Condition: Good Clinical Impression: Confusion, Tremor - Discharge Information *PRESCRIPTION DRUG MONITORING PROGRAM REVIEWED*: Not Applicable *COPY OF PRESCRIPTION DRUG MONITORING REPORT IN PATIENT ABE: Not Applicable Instructions: Confusion, Tremor Referrals: Margoth Sykes NP [Ordering Only Provider] - Forms: ED Department Discharge Additional Instructions: You were seen in the emergency room for confusion and a tremor. Work-up in the ER included blood work, a urinalysis, a test for the novel coronavirus, a CT scan of your head, and an ECG. Your work-up found that you have mild anemia, and mild renal insufficiency, but the remainder of your work-up was unremarkable, and does not explain the cause of your symptoms. We recommend that you follow-up with your PCP to arrange to be seen by a Neurologist. If any other problems, please do not hesitate to return to the ER. Sepsis Event Note (ED) - Evaluation Sepsis Screening Result: Possible Severe Sepsis Risk
--- NOTE | 2020-01-06 05:55 | CT ---
Head CT Technique: Multiple axial sections through the brain were obtained. Intravenous contrast was not utilized. Comparison: Prior head CT study of 05/02/12. Findings: Ventricles along with basal cisterns and sulci over the convexities are mildly prominent. Diminished density is noted within the periventricular white matter compatible with small vessel ischemic demyelination change. Old lacunar infarcts appear to be present within the basal ganglia. No other abnormal parenchymal densities are seen. No evidence of intracranial hemorrhage. No midline shift or mass-effect is seen. Bone window settings were reviewed which shows no acute calvarial finding. Visualized mastoid sinuses and paranasal sinuses show nothing acute. Impression: 1. Mild senescent change. 2. Nothing acute is appreciated. Diagnostic code #2 This report was dictated in MDT I agree with preliminary report from Yvonne, finalized on 01/04/20, 6:43 AM Central Daylight Time
== END 2020-01-04 06:21 | disposition home or self-care (01) ==
LOC: JD.ED 00:20
DX: R41.0 Disorientation, unspecified (principal); R25.1 Tremor, unspecified; I10 Essential (primary) hypertension; J44.9 Chronic obstructive pulmonary disease, unspecified; Z88.8 Allergy status to other drugs, medicaments and biological substances; Z88.1 Allergy status to other antibiotic agents; Z88.5 Allergy status to narcotic agent; Z20.828 Contact with and (suspected) exposure to other viral communicable diseases; Z88.0 Allergy status to penicillin; Z79.82 Long term (current) use of aspirin; Z79.899 Other long term (current) drug therapy; Z87.891 Personal history of nicotine dependence
CPT/HCPCS: 36415; 51701; 70450; 80053; 81001; 85025; 99285; U0002

== ENCOUNTER 2020-01-07 02:08 | Emergency (ER) | payer MEDICARE, OTHER ==
[2020-01-07] MEDS ORDERED: Sodium Chloride 0.9% 1,000 ML IV ONE (02:15)
[2020-01-07] MEDS ORDERED: Sodium Chloride 0.9% 10 ML Syringe FLUSH PRN ×2 (02:15→02:18)
[2020-01-07 02:17] VITALS: PULSE 92
--- NOTE | 2020-01-07 03:13 | EDM.PDOC ---
ED HPI GENERAL MEDICAL PROBLEM - General Chief Complaint: Neurological Problem Stated Complaint: [facility] Time Seen by Provider: 01/07/20 02:20 Source of Information: Reports: EMS, Family (), RN Notes Reviewed - History of Present Illness INITIAL COMMENTS - FREE TEXT/NARRATIVE: 69 yr old female has been brought in by EMS with AMS, generalized weakness, fall at home. She is unable to give any meaningful hx on arrival to ED. The hx of have is obtained from her . He states she has not been well for weeks but worse the last several days. He brought her to the ED 2 or 3 days ago for eval of confusion, generalized weakness. No etiology found at that time. They sleep in separate bedrooms but he heard her get up and they when he went to check on her she was lying on the floor, weak, unable to get up. Her states she has COPD, has smoked a lot in the past but has quit in the past yr or so, uses home oxygen /. 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 No known hx of CAD, CHF. Has not been recently coughing. She did spike a fever 2 days ago but no fever yesterday or today that he is aware of. - Related Data Allergies Allergy/AdvReac Type Severity Reaction Status Date / Time amitriptyline Allergy Cannot Verified 01/07/20 02:10 Remember azithromycin Allergy Rash Verified 01/07/20 02:10 cefixime [From Suprax] Allergy Cannot Verified 01/07/20 02:10 Remember clindamycin Allergy Cannot Verified 01/07/20 02:10 Remember codeine Allergy Cannot Verified 01/07/20 02:10 Remember diphenhydramine HCl Allergy Cannot Verified 01/07/20 02:10 [From Benadryl] Remember doxycycline Allergy Cannot Verified 01/07/20 02:10 Remember erythromycin base Allergy Cannot Verified 01/07/20 02:10 [Erythromycin Base] Remember gatifloxacin [From Tequin] Allergy Cannot Verified 01/07/20 02:10 Remember levofloxacin Allergy Hives Verified 01/07/20 02:10 lisinopril Allergy Hives Verified 01/07/20 02:10 lithium [[place]] Allergy Cannot Verified 01/07/20 02:10 Remember minocycline [Minocycline] Allergy Cannot Verified 01/07/20 02:10 Remember minocycline HCl Allergy Cannot Verified 01/07/20 02:10 [From Minocin] Remember Penicillins Allergy Cannot Verified 01/07/20 02:10 Remember ranitidine HCl [From Zantac] Allergy Cannot Verified 01/07/20 02:10 Remember Home Meds: Home Meds Albuterol [Ventolin HFA] 4 puff INH QID PRN 04/27/17 [History] Aspirin 81 mg PO DAILY 04/27/17 [History] Cyanocobalamin (Vitamin B-12) [Vitamin B-12] 1,000 mcg INJECT ASDIRECTED 04/27/17 [History] Fluticasone Propionate [Flonase] 2 spr KENNETH DAILY 04/27/17 [History] Gabapentin [Neurontin] 600 mg PO TID 04/27/17 [History] Losartan [Cozaar] 50 mg PO DAILY 04/27/17 [History] Metoprolol Tartrate [Lopressor] 100 mg PO BID 04/27/17 [History] Amitriptyline [Elavil] 25 mg PO DAILY 06/05/19 [History] Cyclobenzaprine [Flexeril] 5 mg PO TID PRN 06/05/19 [History] Denosumab [Prolia] 60 mg INJECT Q6M 06/05/19 [History] Fluticasone/Umeclidin/Vilanter [Trelegy Ellipta 100-62.5-25 MCG] 1 puff INH DAILY 06/05/19 [History] Hydrocodone/Acetaminophen [Hydrocodon-Acetaminophn 10-325] 1 tab PO Q4H PRN 06/05/19 [History] Magnesium Chloride [Mag-64] 64 mg PO BID 06/05/19 [History] Metoclopramide [Reglan] 5 mg PO DAILY 06/05/19 [History] atorvaSTATin Calcium [Lipitor] 40 mg PO BEDTIME 06/05/19 [History] Biotin 1 tab PO ASDIRECTED 01/07/20 [History] Cyanocobalamin (Vitamin B-12) [B-12] 1,000 mcg PO ASDIRECTED 01/07/20 [History] Donepezil HCl 10 mg PO BEDTIME 01/07/20 [History] Famotidine 20 mg PO ASDIRECTED PRN 01/07/20 [History] Furosemide [Lasix] 20 mg PO DAILY 01/07/20 [History] Sennosides [Senna] 8.6 mg PO ASDIRECTED PRN 01/07/20 [History] carvediloL [Carvedilol] 25 mg PO DAILY 01/07/20 [History] Past Medical History Cardiovascular History: Reports: Hypertension, SOB on Exertion Respiratory History: Reports: Bronchitis, Recurrent, COPD, Other (See Below) Gastrointestinal History: Reports: Chronic Constipation, GERD, Hemorrhoids, Hiatal Hernia, Irritable Bowel Syndrome Genitourinary History: Reports: Renal Calculus, Other (See Below) 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 Musculoskeletal History: Reports: Back Pain, Chronic, Osteoarthritis, Osteoporosis - Past Surgical History HEENT Surgical History: Reports: Cataract Surgery, Oral Surgery, Tonsillectomy Other Respiratory Surgeries/Procedures: wears 1.5 LPM O2 GI Surgical History: Reports: Cholecystectomy, Colonoscopy, Hernia, Abdominal Musculoskeletal Surgical History: Reports: Other (See Below) Social & Family History - Family History Cardiac: Reports: CAD, Hypertension - Tobacco Use Smoking Status *Q: Unknown Ever Smoked - Caffeine Use Caffeine Use: Reports: None - Living Situation & Occupation Living situation: Reports: Single Occupation: Retired ED ROS GENERAL - Review of Systems Review Of Systems: Unable To Obtain Reason Not Obtained: altered mental status ED EXAM, NEURO - Physical Exam Exam: See Below General Appearance: Moderate Distress, Other (altered mental status, irregular breathing, inappropriate unintellegable repetitive noises) Eye Exam: Bilateral Eye: PERRL Head Exam: Other (small amt of bruising L lat face and forehead). No: Facial Swelling Neck: Other (without JVD) Respiratory/Chest: Lungs Clear, Normal Breath Sounds, Respiratory Distress (mild tachypnea) Cardiovascular: Regular Rate, Rhythm GI/Abdominal: Non-Tender Neurological: Withdraws to Pain, Other (AMS, did squeeze my fingers to command, no other verbal response to questions or commands) Extremities: Pedal Edema (trace bilat). No: Leg Pain, Increased Warmth, Redness Skin Exam: Warm, Dry EKG INTERPRETATION Rhythm: NSR Stewart: Normal P-Wave: Present QRS: Normal ST-T: Normal Course - Vital Signs Last Recorded V/S: Last Vital Signs Temp 98.5 F 01/07/20 02:11 Pulse 92 01/07/20 02:11 Resp 17 01/07/20 02:11 BP 121/59 L 01/07/20 04:39 Pulse Ox 91 L 01/07/20 02:11 - Orders/Labs/Meds Orders: Active Orders 24 hr Category Date Time Status Blood Pressure Mgt: Sepsis [RC] Q15MX2 Care 01/07/20 02:16 Active Oxygen Therapy [RC] ASDIRECTED Care 01/07/20 02:19 Active Peripheral IV Care [RC] . DIRECTED Care 01/07/20 02:19 Active Chest 2V [CR] Stat Exams 01/07/20 02:15 Taken Head wo Cont [CT] Stat Exams 01/07/20 02:36 Taken CULTURE BLOOD [BC] Stat Lab 01/07/20 02:50 Received CULTURE BLOOD [BC] Stat Lab 01/07/20 03:30 Received Blood Culture x2 Reflex Set [OM.PC] Stat Oth 01/07/20 02:15 Ordered Peripheral IV Insertion Adult [OM.PC] Stat Oth 01/07/20 02:19 Ordered Saline Lock Insert [OM.PC] Stat Oth 01/07/20 02:15 Ordered Labs: Laboratory Tests 01/07/20 01/07/20 01/07/20 Range/Units 02:14 02:21 02:21 WBC (3.98-10.04) K/mm3 RBC (3.98-5.22) M/mm3 Hgb (11.2-15.7) gm/dl Hct (34.1-44.9) % MCV (79.4-94.8) fl MCH (25.6-32.2) pg MCHC (32.2-35.5) g/dl RDW Std Deviation (36.4-46.3) fL Plt Count (182-369) K/mm3 MPV (9.4-12.3) fl Neutrophils % (Manual) (40-60) % Band Neutrophils % (0-10) % Lymphocytes % (Manual) (20-40) % Atypical Lymphs % % Monocytes % (Manual) (2-10) % Eosinophils % (Manual) (0.7-5.8) % Basophils % (Manual) (0.1-1.2) Toxic Granulation Platelet Estimate Plt Morphology Comment Hypochromasia Anisocytosis RBC Morph Comment PT (9.7-12.0) SECONDS INR Puncture Site ABG pH (7.35-7.45) ABG pCO2 (35.0-45.0) mmHg ABG pO2 (80.0-100.0) mmHg ABG HCO3 (22.0-26.0) meq/L ABG O2 Saturation (96.0-97.0) % ABG Base Excess (-2-2.0) Nathan Test O2 Delivery Device Oxygen Flow Rate Sodium (136-145) mEq/L Potassium (3.5-5.1) mEq/L Chloride (98-107) mEq/L Carbon Dioxide (21-32) mEq/L Anion Gap (5-15) BUN (7-18) mg/dL Creatinine (0.55-1.02) mg/dL Est Cr Clr Drug Dosing Estimated GFR (MDRD) (>60) mL/min BUN/Creatinine Ratio (14-18) Glucose (83-115) mg/dL POC Glucose 188 H (83-110) mg/dL Lactic Acid (0.4-2.0) mmol/L Calcium (8.5-10.1) mg/dL Total Bilirubin (0.2-1.0) mg/dL AST (15-37) U/L ALT (14-59) U/L Alkaline Phosphatase (46-116) U/L C-Reactive Protein (<1.0) mg/dL Total Protein (6.4-8.2) g/dl Albumin (3.4-5.0) g/dl Globulin gm/dL Albumin/Globulin Ratio (1-2) Urine Color Yellow (Yellow) Urine Appearance Clear (Clear) Urine pH 5.5 (5.0-8.0) Ur Specific [place] 1.025 (1.005-1.030) Urine Protein Negative (Negative) Urine Glucose (UA) Negative (Negative) Urine Ketones Negative (Negative) Urine Occult Blood Negative (Negative) Urine Nitrite Negative (Negative) Urine Bilirubin Negative (Negative) Urine Urobilinogen 0.2 (0.2-1.0) Ur Leukocyte Esterase Negative (Negative) Urine Opiates Screen Presumptive positive H (JRPJTF=077) Ur Buprenorphine Scrn Negative (CUTOFF=10) Ur Oxycodone Screen Negative (FZT7ZP=266) Urine Methadone Screen Negative (HPLTKV=877) Ur Propoxyphene Screen Negative (GMWZGL=841) Ur Barbiturates Screen Negative (FZLYMX=882) Ur Tricyclics Screen Presumptive positive H (IFFJPW=161) Ur Phencyclidine Scrn Negative (CUTOFF=25) Ur Amphetamine Screen Negative (MZKFRE=159) U Methamphetamines Scrn Negative (IVCOSX=539) U Benzodiazepines Scrn Negative (XGJASA=078) U Cocaine Metab Screen Negative (FNMJMD=577) U Marijuana (THC) Screen Negative (CUTOFF=50) Ethyl Alcohol (0.00) gm% SARS Virus RNA (PCR) (NEGATIVE) 01/07/20 01/07/20 01/07/20 Range/Units 02:50 02:50 02:50 WBC 4.92 (3.98-10.04) K/mm3 RBC 2.66 L (3.98-5.22) M/mm3 Hgb 8.6 L (11.2-15.7) gm/dl Hct 26.4 L (34.1-44.9) % MCV 99.2 H (79.4-94.8) fl MCH 32.3 H (25.6-32.2) pg MCHC 32.6 (32.2-35.5) g/dl RDW Std Deviation 51.0 H (36.4-46.3) fL Plt Count 156 L (182-369) K/mm3 MPV 9.2 L (9.4-12.3) fl Neutrophils % (Manual) 73 H (40-60) % Band Neutrophils % 0 (0-10) % Lymphocytes % (Manual) 21 (20-40) % Atypical Lymphs % 0 % Monocytes % (Manual) 5 (2-10) % Eosinophils % (Manual) 1 (0.7-5.8) % Basophils % (Manual) 0 L (0.1-1.2) Toxic Granulation 2+ moderate Platelet Estimate Adequate Plt Morphology Comment Normal Hypochromasia 1+ slight Anisocytosis 1+ slight RBC Morph Comment Not Reportable PT 10.1 (9.7-12.0) SECONDS INR < 0.93 Puncture Site ABG pH (7.35-7.45) ABG pCO2 (35.0-45.0) mmHg ABG pO2 (80.0-100.0) mmHg ABG HCO3 (22.0-26.0) meq/L ABG O2 Saturation (96.0-97.0) % ABG Base Excess (-2-2.0) Nathan Test O2 Delivery Device Oxygen Flow Rate Sodium 134 L (136-145) mEq/L Potassium 3.4 L (3.5-5.1) mEq/L Chloride 96 L (98-107) mEq/L Carbon Dioxide 33 H (21-32) mEq/L Anion Gap 8.4 (5-15) BUN 28 H (7-18) mg/dL Creatinine 3.1 H D (0.55-1.02) mg/dL Est Cr Clr Drug Dosing TNP Estimated GFR (MDRD) 15 (>60) mL/min BUN/Creatinine Ratio 9.0 L (14-18) Glucose 157 H (83-115) mg/dL POC Glucose (83-110) mg/dL Lactic Acid (0.4-2.0) mmol/L Calcium 8.6 (8.5-10.1) mg/dL Total Bilirubin 0.3 (0.2-1.0) mg/dL AST 15 (15-37) U/L ALT 27 (14-59) U/L Alkaline Phosphatase 79 (46-116) U/L C-Reactive Protein 4.1 H* (<1.0) mg/dL Total Protein 5.8 L (6.4-8.2) g/dl Albumin 2.8 L (3.4-5.0) g/dl Globulin 3.0 gm/dL Albumin/Globulin Ratio 0.9 L (1-2) Urine Color (Yellow) Urine Appearance (Clear) Urine pH (5.0-8.0) Ur Specific [place] (1.005-1.030) Urine Protein (Negative) Urine Glucose (UA) (Negative) Urine Ketones (Negative) Urine Occult Blood (Negative) Urine Nitrite (Negative) Urine Bilirubin (Negative) Urine Urobilinogen (0.2-1.0) Ur Leukocyte Esterase (Negative) Urine Opiates Screen (ENVDIK=995) Ur Buprenorphine Scrn (CUTOFF=10) Ur Oxycodone Screen (YKG7LN=793) Urine Methadone Screen (MPHTCB=404) Ur Propoxyphene Screen (LNTZTZ=393) Ur Barbiturates Screen (BUZAJS=214) Ur Tricyclics Screen (AQAYCS=934) Ur Phencyclidine Scrn (CUTOFF=25) Ur Amphetamine Screen (KFGGFW=393) U Methamphetamines Scrn (AXWHNX=662) U Benzodiazepines Scrn (LKPFQT=906) U Cocaine Metab Screen (FMLGGP=842) U Marijuana (THC) Screen (CUTOFF=50) Ethyl Alcohol (0.00) gm% SARS Virus RNA (PCR) (NEGATIVE) 01/07/20 01/07/20 01/07/20 Range/Units 02:50 02:50 03:12 WBC (3.98-10.04) K/mm3 RBC (3.98-5.22) M/mm3 Hgb (11.2-15.7) gm/dl Hct (34.1-44.9) % MCV (79.4-94.8) fl MCH (25.6-32.2) pg MCHC (32.2-35.5) g/dl RDW Std Deviation (36.4-46.3) fL Plt Count (182-369) K/mm3 MPV (9.4-12.3) fl Neutrophils % (Manual) (40-60) % Band Neutrophils % (0-10) % Lymphocytes % (Manual) (20-40) % Atypical Lymphs % % Monocytes % (Manual) (2-10) % Eosinophils % (Manual) (0.7-5.8) % Basophils % (Manual) (0.1-1.2) Toxic Granulation Platelet Estimate Plt Morphology Comment Hypochromasia Anisocytosis RBC Morph Comment PT (9.7-12.0) SECONDS INR Puncture Site ABG pH (7.35-7.45) ABG pCO2 (35.0-45.0) mmHg ABG pO2 (80.0-100.0) mmHg ABG HCO3 (22.0-26.0) meq/L ABG O2 Saturation (96.0-97.0) % ABG Base Excess (-2-2.0) Nathan Test O2 Delivery Device Oxygen Flow Rate Sodium (136-145) mEq/L Potassium (3.5-5.1) mEq/L Chloride (98-107) mEq/L Carbon Dioxide (21-32) mEq/L Anion Gap (5-15) BUN (7-18) mg/dL Creatinine (0.55-1.02) mg/dL Est Cr Clr Drug Dosing Estimated GFR (MDRD) (>60) mL/min BUN/Creatinine Ratio (14-18) Glucose (83-115) mg/dL POC Glucose (83-110) mg/dL Lactic Acid 1.9 (0.4-2.0) mmol/L Calcium (8.5-10.1) mg/dL Total Bilirubin (0.2-1.0) mg/dL AST (15-37) U/L ALT (14-59) U/L Alkaline Phosphatase (46-116) U/L C-Reactive Protein (<1.0) mg/dL Total Protein (6.4-8.2) g/dl Albumin (3.4-5.0) g/dl Globulin gm/dL Albumin/Globulin Ratio (1-2) Urine Color (Yellow) Urine Appearance (Clear) Urine pH (5.0-8.0) Ur Specific [place] (1.005-1.030) Urine Protein (Negative) Urine Glucose (UA) (Negative) Urine Ketones (Negative) Urine Occult Blood (Negative) Urine Nitrite (Negative) Urine Bilirubin (Negative) Urine Urobilinogen (0.2-1.0) Ur Leukocyte Esterase (Negative) Urine Opiates Screen (YSAYLW=105) Ur Buprenorphine Scrn (CUTOFF=10) Ur Oxycodone Screen (TRS5YE=580) Urine Methadone Screen (ACJTCV=084) Ur Propoxyphene Screen (DLMBTN=397) Ur Barbiturates Screen (GZGSZA=047) Ur Tricyclics Screen (NKTMIH=704) Ur Phencyclidine Scrn (CUTOFF=25) Ur Amphetamine Screen (AWLCAX=654) U Methamphetamines Scrn (OFJNST=586) U Benzodiazepines Scrn (TQSFDL=714) U Cocaine Metab Screen (LMLMQI=255) U Marijuana (THC) Screen (CUTOFF=50) Ethyl Alcohol 0.00 (0.00) gm% SARS Virus RNA (PCR) Negative (NEGATIVE) 01/07/20 Range/Units 03:14 WBC (3.98-10.04) K/mm3 RBC (3.98-5.22) M/mm3 Hgb (11.2-15.7) gm/dl Hct (34.1-44.9) % MCV (79.4-94.8) fl MCH (25.6-32.2) pg MCHC (32.2-35.5) g/dl RDW Std Deviation (36.4-46.3) fL Plt Count (182-369) K/mm3 MPV (9.4-12.3) fl Neutrophils % (Manual) (40-60) % Band Neutrophils % (0-10) % Lymphocytes % (Manual) (20-40) % Atypical Lymphs % % Monocytes % (Manual) (2-10) % Eosinophils % (Manual) (0.7-5.8) % Basophils % (Manual) (0.1-1.2) Toxic Granulation Platelet Estimate Plt Morphology Comment Hypochromasia Anisocytosis RBC Morph Comment PT (9.7-12.0) SECONDS INR Puncture Site Lt radial ABG pH 7.35 (7.35-7.45) ABG pCO2 55.9 H (35.0-45.0) mmHg ABG pO2 65.0 L (80.0-100.0) mmHg ABG HCO3 30.1 H (22.0-26.0) meq/L ABG O2 Saturation 87.4 L (96.0-97.0) % ABG Base Excess 4.3 H (-2-2.0) Nathan Test Positive O2 Delivery Device Nasal cannula Oxygen Flow Rate 4.0 Sodium (136-145) mEq/L Potassium (3.5-5.1) mEq/L Chloride (98-107) mEq/L Carbon Dioxide (21-32) mEq/L Anion Gap (5-15) BUN (7-18) mg/dL Creatinine (0.55-1.02) mg/dL Est Cr Clr Drug Dosing Estimated GFR (MDRD) (>60) mL/min BUN/Creatinine Ratio (14-18) Glucose (83-115) mg/dL POC Glucose (83-110) mg/dL Lactic Acid (0.4-2.0) mmol/L Calcium (8.5-10.1) mg/dL Total Bilirubin (0.2-1.0) mg/dL AST (15-37) U/L ALT (14-59) U/L Alkaline Phosphatase (46-116) U/L C-Reactive Protein (<1.0) mg/dL Total Protein (6.4-8.2) g/dl Albumin (3.4-5.0) g/dl Globulin gm/dL Albumin/Globulin Ratio (1-2) Urine Color (Yellow) Urine Appearance (Clear) Urine pH (5.0-8.0) Ur Specific [place] (1.005-1.030) Urine Protein (Negative) Urine Glucose (UA) (Negative) Urine Ketones (Negative) Urine Occult Blood (Negative) Urine Nitrite (Negative) Urine Bilirubin (Negative) Urine Urobilinogen (0.2-1.0) Ur Leukocyte Esterase (Negative) Urine Opiates Screen (QUBIML=739) Ur Buprenorphine Scrn (CUTOFF=10) Ur Oxycodone Screen (WYU9LZ=757) Urine Methadone Screen (TWGXFH=861) Ur Propoxyphene Screen (MYGDGK=134) Ur Barbiturates Screen (JYHYLB=645) Ur Tricyclics Screen (UEBSAV=985) Ur Phencyclidine Scrn (CUTOFF=25) Ur Amphetamine Screen (EHDBIB=616) U Methamphetamines Scrn (RTHCSN=862) U Benzodiazepines Scrn (TSWTVO=978) U Cocaine Metab Screen (CNJWDI=315) U Marijuana (THC) Screen (CUTOFF=50) Ethyl Alcohol (0.00) gm% SARS Virus RNA (PCR) (NEGATIVE) Meds: Medications Discontinued Medications Generic Name Dose Route Start Last Admin Trade Name Freq PRN Reason Stop Dose Admin Sodium Chloride 1,000 mls @ 999 mls/hr 01/07/20 02:15 01/07/20 02:29 Normal Saline IV 01/07/20 03:15 999 mls/hr BOLUS ONE Administration Sodium Chloride 10 ml 01/07/20 02:15 01/07/20 02:52 Saline Flush FLUSH 10 ml ASDIRECTED PRN Administration Keep Vein Open Sodium Chloride 10 ml 01/07/20 02:18 01/07/20 02:52 Saline Flush FLUSH 10 ml ASDIRECTED PRN Administration Keep Vein Open - Re-Assessments/Exams Free Text/Narrative Re-Assessment/Exam: 01/07/20 05:08. labs came back showing hgb 8.6, creat 3.1, ABG's OK as documented. Urine drug screen pos. for opiods, tricyclics. 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 I have discussed this with Dr Matute, Neurosurgeon purification director for [facility]. He would like her admitted through the ED for stat MRI, Dr Nikita Hardwick. She will be transferred by ground ambulance. Departure - Departure Time of Disposition: 04:40 Disposition: DC/Tfer to Acute Hospital 02 Clinical Impression: Intracerebral hemorrhage Qualifiers: Intracerebral hemorrhage etiology: nontraumatic Cerebral hemorrhage location: cerebellum Laterality: left Qualified Code(s): I61.4 - Nontraumatic intracerebral hemorrhage in cerebellum Altered mental status Qualifiers: Altered mental status type: stupor Qualified Code(s): R40.1 - Stupor Fall Qualifiers: Encounter type: initial encounter Qualified Code(s): W19.XXXA - Unspecified fall, initial encounter - Discharge Information Referrals: PCP,None [Primary Care Provider] - Forms: ED Department Discharge Sepsis Event Note (ED) - Evaluation Sepsis Screening Result: No Definite Risk - Focused Exam Vital Signs: Vital Signs Temp Pulse Resp BP Pulse Ox 01/07/20 04:39 121/59 L 01/07/20 03:54 114/58 L 01/07/20 02:11 98.5 F 92 17 147/120 H 91 L - My Orders Last 24 Hours: My Active Orders 01/07/20 02:15 Chest 2V [CR] Stat Blood Culture x2 Reflex Set [OM.PC] Stat Saline Lock Insert [OM.PC] Stat 01/07/20 02:16 Blood Pressure Mgt: Sepsis [RC] Q15MX2 01/07/20 02:19 Oxygen Therapy [RC] ASDIRECTED Peripheral IV Care [RC] . DIRECTED Peripheral IV Insertion Adult [OM.PC] Stat 01/07/20 02:36 Head wo Cont [CT] Stat 01/07/20 02:50 CULTURE BLOOD [BC] Stat 01/07/20 03:30 CULTURE BLOOD [BC] Stat - Assessment/Plan Last 24 Hours: My Active Orders 01/07/20 02:15 Chest 2V [CR] Stat Blood Culture x2 Reflex Set [OM.PC] Stat Saline Lock Insert [OM.PC] Stat 01/07/20 02:16 Blood Pressure Mgt: Sepsis [RC] Q15MX2 01/07/20 02:19 Oxygen Therapy [RC] ASDIRECTED Peripheral IV Care [RC] . DIRECTED Peripheral IV Insertion Adult [OM.PC] Stat 01/07/20 02:36 Head wo Cont [CT] Stat 01/07/20 02:50 CULTURE BLOOD [BC] Stat 01/07/20 03:30 CULTURE BLOOD [BC] Stat
[2020-01-07 04:40] VITALS: BP 121/59
--- NOTE | 2020-01-07 07:49 | CR ---
Chest: Portable view of the chest was obtained. Comparison: Prior chest x-ray of 07/01 517. Heart size is normal. Tortuous thoracic aorta is seen. Lung markings are increased on the right side from prior chest x-ray. Left lung is clear. Bony structures are grossly intact. Impression: 1. Increased density within the right chest raising the possibility of bronchopneumonia. Asymmetric pulmonary vasculature would seem less likely given that the heart is normal in size. 2. Other portions of the chest are stable. Diagnostic code #3 This report was dictated in MDT
--- NOTE | 2020-01-07 07:59 | CT ---
Head CT Technique: Multiple axial sections through the brain were obtained. Intravenous contrast was not utilized. Comparison: Prior head CT study of 01/04/20. Findings: Equivocal area of increased density within the left cerebellar pontine angle cistern/posterior fossa. This finding measures about 2.2 cm in greatest dimension. This area occurs in an area of artifact and uncertain if this is real. This is an interval change from previous study. Ventricles along with basal cisterns and sulci over the convexities are mildly prominent. Mild diminished density is seen within the periventricular white matter compatible with mild small vessel ischemic demyelination change. Old lacunar infarcts again noted within the basal ganglia. No other findings of intracranial hemorrhage. No midline shift or mass-effect is seen. Bone window settings were reviewed which shows no acute calvarial abnormality. Visualized mastoid sinuses and visualized paranasal sinuses show nothing acute. Impression: 1. Questionable area of increased density within the left pontine angle cistern/posterior fossa. This is not appreciated on prior study. Difficult to exclude a hemorrhagic mass or hematoma. This is also in an area of artifact and could be artifactual as well. If patient has no interfering complications, MRI would be helpful to confirm or rule out. 2. Stable senescent change as noted above. 3. No other acute finding is appreciated. Diagnostic code #5 This report was dictated in MDT I agree with preliminary report from Yvonne, finalized on 01/07/20, 5:19 AM Central Daylight Time
== END 2020-01-07 05:15 ==
LOC: JD.ED 02:08
DX: S06.379A Contusion, laceration, and hemorrhage of cerebellum with loss of consciousness of unspecified duration, initial encounter (principal); I10 Essential (primary) hypertension; J44.9 Chronic obstructive pulmonary disease, unspecified; K21.9 Gastro-esophageal reflux disease without esophagitis; R41.82 Altered mental status, unspecified; Z88.1 Allergy status to other antibiotic agents; Z88.5 Allergy status to narcotic agent; Z88.8 Allergy status to other drugs, medicaments and biological substances; Z88.0 Allergy status to penicillin; Z79.82 Long term (current) use of aspirin; Z79.899 Other long term (current) drug therapy; Z91.09 Other allergy status, other than to drugs and biological substances; Z20.828 Contact with and (suspected) exposure to other viral communicable diseases; W19.XXXA Unspecified fall, initial encounter; Y92.009 Unspecified place in unspecified non-institutional (private) residence as the place of occurrence of the external cause
CPT/HCPCS: 36415; 36600; 70450; 71046; 80053; 80306; 80307; 81003; 82803; 82962; 83605; 85007; 85027; 85610; 86140; 87040; 96360; 96361; 99285; J7030; U0002